=== PATIENT | male | born 1975 | race Caucasian/White ===

== ENCOUNTER 2020-06-28 08:31 | Emergency (ER) | payer SELFPAY ==
[~2020-06-28] VITALS: Ht 180.3 cm; Wt 86.2 kg
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
--- OUTSIDE RECORDS SUMMARY | 2020-06-28 08:53 | XMS REPORT | Continuity of Care Document ---
Author Author [facility] t Organization [facility] Address [address] [place] [address] Phone Unavailable Care Team Providers Care Varnish Maker Name Role Phone Vinay GOMES PCP Cruz MARIANO Attphys Unavailable Payers Payer Name Policy Type Policy Number Effective Date Expiration Date S merly [facility] [id number] 2011 00:00:00 [facility] Problems Condition Name Condition Details Condition Category Status Onset Date Resolution Date Last Treatment Date Treating Clinician Comments Source Cellulitis and abscess Problem Active 2015-09-09 00:00:00 [facility] Allergies, Adverse Reactions, Alerts Allergy Name Allergy Type Status Severity Reaction(s) Onset Date Inacti ve Date Treating Clinician Comments Source morphine DA Active [place] 2020-05-05 00:00:00 [facility] morphine DA Active [place] 2018-09-14 00:00:00 [facility] No Known Allergies DA Active [place] 2016-01-23 00:00:00 [facility] Morphine Allergy to substance Active ITCH RASH 2011-08-24 00:00:00 [facility] Social History Social Habit Start Date Stop Date Quantity Comments Source Sex Assigned At 1975 00:00:00 1975 00:00:00 Male [facility] Medications This patient has no known medications. Vital Signs Vital Name Observation Time Observation Value Comments Source Weight 2020-05-04 17:40:00 184 [lb_av] [facility] BMI (Body Mass Index) 2020-05-04 17:40:00 25.7 kg/m2 [facility] Procedures Procedure Date / Time Performed Performing Clinician Sour e Computed tomography of brain without radiopaque contrast 2020-04 00:00:00 [facility] Computed tomography of cervical spine without contrast 2020-04-15 1 00:00:00 [facility] X-ray of chest, single view 2020-05-04 00:00:[address] [facility] [address] maxillofacial area wo contrast 2020-05-04 00:00:00 [facility] Plan of Care Planned Activity Planned Date Details Comments Source Instructions Laceration [facility] Encounters Start Date/Time End Date/Time Encounter Type Admission Type Att[facility] Care Department Encounter ID Source 2020-05-04 17:01:00 2020-05-04 19:50:00 Departed Emergency Room 1 ALYSON MARIANO [facility] [id number] [facility] 2017-12-11 00:00:00 2017-12-20 00:00:00 [facility] [id number] [facility] 2017-06-19 00:00:00 2017-06-22 00:00:00 [facility] [id number] [facility] Results Test Description Test Time Test Comments Results Result Comments Source Blood leukocytes automated count (number/volume) 2020-05-04 18:40:00 Test Item White Blood Count (test code = 6690-2) 7.94 4.8-10.8 [facility] count (number/volume)2020-05-04 18:40:00* Test Item Value Reference Range Interpretation Comments Red Blood Count (test code = 789-8) 5.15 4.3-5.7 [facility] measurement (moles/volume)2020-05-04 18:40:00* Test Item Value Reference Range Interpretation Comments Hemoglobin (test code = 48469-9) 14.5 14.0-18.0 [facility] blood hematocrit (volume fraction)2020-05-04 18:40:00* Test Item Value Reference Range Interpretation Comments Hematocrit (test code = 4544-3) 45.3 38.2-49.6 [facility] erythrocyte mean corpuscular tvahqw6051-47-15 18:40:00* Test Item Value Reference Range Interpretation Comments Mean Corpuscular Volume (test code = 787-2) 88.0 81-99 [facility] erythrocyte mean corpuscular hemoglobin (mass per erythrocyte)2020-05-04 18:40:00* Test Item Value Reference Range Interpretation Comments Mean Corpuscular Hemoglobin (test code = 785-6) 28.2 28-32 [facility] HospitalAutcarolin[facility]ed erythrocyte mean corpuscular hemoglobin concentration measurement (mass/volume)2020-05-04 18:40:00* Test Item Value Reference Range Interpretation Comments Mean Corpuscular Hemoglobin Concent (test code = 786-4) 32.0 31-35 [facility] HospitalRDW TsmTf-Zmj1828-36-21 18:40:00* Test Item Value Reference Range Interpretation Comments Red Cell Distribution Width (test code = 28801-2) 12.5 11.7 -14.4 [facility] HospitalAutcarolin[facility]ed blood platelet count (count/volume)2020-05-04 18:40:00* Test Item Value Reference Range Interpretation Comments Platelet Count (test code = 777-3) 368 140-360 [facility] HospitalAutomated blood segmented neutrophil count as percentage of total hbaqedagot2424-75-53 18:40:00* Test Item Value Reference Range Interpretation Comments Neutrophils (%) (Auto) (test code = 81773-3) 68.2 38.7-80.0 [facility] HospitalAutomated blood lymphocyte count as percentage ot total jhktkrogqi1291-61-39 18:40:00* Test Item Value Reference Range Interpretation Comments Lymphocytes (%) (Auto) (test code = 736-9) 17.8 18.0-39.1 [facility] HospitalAutomated blood monocyte count as percentage of total idpyknwpzr1968-76-65 18:40:00* Test Item Value Reference Range Interpretation Comments Monocytes (%) (Auto) (test code = 5905-5) 8.2 4.4-11.3 [facility] HospitalAutomated blood eosinophil count as percentage of total jxtckmcpye1475-23-90 18:40:00* Test Item Value Reference Range Interpretation Comments Eosinophils (%) (Auto) (test code = 713-8) 4.9 0.0-6.0 [facility] HospitalAutomated blood basophil count as percentage of total clfdsydudo6198-78-06 18:40:00* Test Item Value Reference Range Interpretation Comments Basophils (%) (Auto) (test code = 706-2) 0.4 0.0-1.0 [facility] HospitalFluoroscopic procedure less than one hour mwifacll3261-71-75 18:40:00* Test Item Value Reference Range Interpretation Comments IM GRANULOCYTES % (test code = IM GRANULOCYTES %) 0.5 0.0- 1.0 [facility] HospitalAutomated blood neutrophil count 2020-05-04 18:40:00* Test Item Value Reference Range Interpretation Comments Neutrophils # (Auto) (test code = 751-8) 5.4 2.1-6.9 [facility]Blood lymphocytes count (number/volume) 2020-05-04 18:40:00* Test Item Value Reference Range Interpretation Comments Lymphocytes # (Auto) (test code = 08243-1) 1.4 1.0-3.2 [facility]Blood monocytes automated count (number/volume)2020-05-04 18:40:00* Test Item Value Reference Range Interpretation Comments Monocytes # (Auto) (test code = 742-7) 0.7 0.2-0.8 [facility] HospitalAutomated blood eosinophil count 2020-05-04 18:40:00* Test Item Value Reference Range Interpretation Comments Eosinophils # (Auto) (test code = 711-2) 0.4 0.0-0.4 [facility] HospitalAutomated blood basophil count (count/volume)2020-05-04 18:40:00* Test Item Value Reference Range Interpretation Comments Basophils # (Auto) (test code = 704-7) 0.0 0.0-0.1 [facility] HospitalFluoroscopic procedure less than one hour asfwordi2809-64-97 18:40:00* Test Item Value Reference Range Interpretation Comments Absolute Immature Granulocyte (auto ([place] t code = Absolute Immature Granulocyte (auto) 0.04 0-0.1 [facility] or plasma sodium measurement (moles/volume)2020-05-04 18:40:00* Test Item Value Reference Range Interpretation Comments Sodium Level (test code = 2951-2) 143 136-145 [facility]um or plasma potassium measurement (moles/volume)2020-05-04 18:40:00* Test Item Value Reference Range Interpretation Comments Potassium Level (test code = 2823-3) 4.0 3.5-5.1 [facility]um or plasma chloride measurement (moles/volume)2020-05-04 18:40:00* Test Item Value Reference Range Interpretation Comments Chloride Level (test code = 2075-0) 107 98-107 [facility] Dentonerum or plasma carbon dioxide, total measurement (moles/volume)2020-05-04 18:40:00* Test Item Value Reference Range Interpretation Comments Carbon Dioxide Level (test code = 2028-9) 31 22-29 [facility] Dentonerum or plasma anion zds6888-13-58 18:40:00* Test Item Value Reference Range Interpretation Comments Anion Gap (test code = 30596-1) 9.0 8-16 [facility]um or plasma urea nitrogen measurement (mass/volume)2020-05-04 18:40:00* Test Item Value Reference Range Interpretation Comments Blood Urea Nitrogen (test code = 3094-0) 12 7-26 [facility]um or plasma creatinine measurement (mass/volume)2020-05-04 18:40:00* Test Item Value Reference Range Interpretation Comments Creatinine (test code = 2160-0) 1.27 0.72-1.25 [facility]um or plasma urea nitrogen/creatinine mass arbnr0775-33-30 18:40:00* Test Item Value Reference Range Interpretation Comments BUN/Creatinine Ratio (test code = 3097-3) 9 6-25 [facility] HospitalEstimated glomerular filtration rate (GFR) puzanvukomeex6864-50-03 18:40:00* Test Item Value Reference Range Interpretation Comments Estimat Glomerular Filtration Rate (test code = 767994337) > 60 >60 Ranges were taken from the National Kidney Disease Education Program and the [facility] Kidney Foundation literature.Reference ranges:60 or greater: Lztbxn74-77 ( for 3 consecutive months): Chronic kidney disease 15 or less: Kidney failureHemphill County HospitalGlucose gywyscngxju9745-40-32 18:40:00* Test Item Value Reference Range Interpretation Comments Glucose Level (test code = HGN0747) 79 74-118 [facility]onerum or plasma calcium measurement (mass/volume)2020-05-04 18:40:00* Test Item Value Reference Range Interpretation Comments Calcium Level (test code = 48659-8) 9.0 8.4-10.2 [facility]onerum or plasma total bilirubin measurement (mass/volume)2020-05-04 18:40:00* Test Item Value Reference Range Interpretation Comments Total Bilirubin (test code = 1975-2) 0.3 0.2-1.2 [facility] HospitalFluoroscopic procedure less than one hour qkzvqrjw3321-61-75 18:40:00* Test Item Value Reference Range Interpretation Comments Aspartate Amino Transf (AST/SGOT) (test code = Aspartate Amino Transf (AST/SGOT)) 18 5-34 [facility] Dentonerum or plasma alanine aminotransferase measurement (enzymatic activity/volume)2020-05-04 18:40:00* Test Item Value Reference Range Interpretation Comments Alanine Aminotransferase (ALT/SGPT) (test code = 1742-6) 18 0-55 [facility]onerum or plasma protein measurement (mass/volume)2020-05-04 18:40:00* Test Item Value Reference Range Interpretation Comments Total Protein (test code = 2885-2) 7.4 6.5-8.1 [facility]um or plasma albumin measurement (mass/volume)2020-05-04 18:40:00* Test Item Value Reference Range Interpretation Comments Albumin (test code = 1751-7) 3.8 3.5-5.0 [facility] HospitalPlasma globulin measurement (mass/volume) 2020-05-04 18:40:00* Test Item Value Reference Range Interpretation Comments Globulin (test code = 57082-3) 3.6 2.3-3.5 [facility]um or plasma albumin/globulin mass hwbnk6954-28-95 18:40:00* Test Item Value Reference Range Interpretation Comments Albumin/Globulin Ratio (test code = 1759-0) 1.1 0.8-2.0 [facility]um or plasma alkaline phosphatase measurement (enzymatic activity/volume)2020-05-04 18:40:00* Test Item Value Reference Range Interpretation Comments Alkaline Phosphatase (test code = 6768-6) 91 40-150 [facility] HospitalCT C[facility]ICAL SPINE [id number] 18:40:00 [facility] [address] [address] Patient Name: GRIFFIN GIVENS MR #: [id number] : 1975 Age/Sex: 44/M Req #: [id number] Adm Physician: Ordered by: ALYSON MARIANO MD Report #: [id number] Location: ER Room/Bed: Procedure: [id number] CT/CT CERVICAL SP INE WO Exam Date: 05/04/20 Exam Time: 1750 REPORT STATUS: Signed History: Trauma C omparison studies: None Technique: Axial images were obtained through th e cervical region.. Coronal and sagittal images reconstructed from the axial d carlota. Dose modulation, iterative reconstruction, and/or weight based adjustment of the mA/kV was utilized to reduce the radiation dose to as low as reasonab ly achievable. Intravenous contrast: None Findings: Fractures: None. Soft tissues: No gross abnormalities. Atlantoaxial articulation: M ildly degenerated. Alignment: Reversal of the usual lordosis centered at C5. N o scoliosis. Cervicomedullary junction: No abnormalities. The foramen magnum i s patent. Vertebrae: No infection or neoplasm. Degenerative changes : * Mildly degenerated discs at C3-4 and C4-5, moderate at C5-6 and C6-7. * Spinal canal stenosis, mild from C3 to C5, moderate at C5-6, mild at C6-7 d ue to disc osteophyte complexes. * Foraminal stenosis, moderate left at C2-3 and C3-4 bilaterally at C5-6 and left at C6-7 due to facet and uncoarthrosis IMPRESSION: 1. No acute abnormalities. 2. Cannot adequately eval uate for ligament, spinal cord and or vascular abnormalities. 3. Degener ative spinal canal and foraminal stenosis as described Signed by: Dr. Chaparro Jackman M.D. on 05/04/2020 6:42 PM Dictated By: CHAPARRO Ford MD, MD 41 Transcribed By: RODOLFO on 05/04/201841 COPY TO: ALYSON MARIANO MD [facility] [id number] 18:38:[address] [address] Patient Name: GRIFFIN GIVENS MR #: [id number] : 1975 Age/Sex: 44/M Req #: [id number] Adm Physician: Ordered by: ALYSON MARIANO MD Report #: [id number] Location: ER Room/Bed: Procedure: [id number] CT/CT MAXIO FAC/P ARANAS WO Exam Date: 05/04/20 Exam Time: 1750 REPORT STATUS: Signed History:Trauma Comparison studies: None Technique: Axial images were obtained through t he maxillofacial region. Coronal and sagittal images reconstructed from the ax ial data. Dose modulation, iterative reconstruction, and/or weight based adjus tment of the mA/kV was utilized to reduce the radiation dose to as low as issac sonably achievable. Intravenous contrast: None Findings: Soft tissues: No abnormalities. Bones: No fractures or bone abnormalities. Orbits: Globes: Intact Extra or intraconal abnormalities: None. Paranasal sinuses: Peripheral mucosal thickening in the left maxillary sinus e xtends into the infundibulum. Focal mucosal thickening along the floor of th e right maxillary sinus. Otherwise clear. IMPRESSION: 1. No acute abnormalities. 2. Specifically, no fractures. Signed by: Dr. Chaparro Sheridan M.D. on 05/04/2020 6:40 PM Dictated By: CHAPARRO Mclean D 39 Transc ribed By: RODOLFO on 05/04/201839 COPY TO: ALYSON MARIANO MD CT BRAIN [id number] 18:37:00 [address] [address] Patient Name: GRIFFIN GIVENS MR #: [id number] : 1975 Age/Sex: 44/M Req #: [id number] Adm Physician: Ordered by: ALYSON MARIANO MD Report #: [id number] Location: ER Room/Bed: Procedure: [id number] CT/CT BRAIN LIANNE Kramer xam Date: 05/04/20 Exam Time: 1750 REPORT STATUS: Signed History: Fall Compariso n studies: None Technique: Axial images were obtained from the skull base to the vertex. Coronal and sagittal reconstructions obtained from the ax ial data. Dose modulation, iterative reconstruction, and/or weight based adjus tment of the mA/kV was utilized to reduce the radiation dose to as low as issac sonably achievable. Intravenous contrast: None Findings: Scalp /skull: No abnormalities. No fractures, blastic or lytic lesions. Extra- axial spaces: No masses. No fluid collections. Brain sulci: Appropriate for age. Ventricles: Normal in size and configuration. No hydrocephalus. Parenchyma: No abnormal densities. No masses, hemorrhage, acute or chroni c cortical vascular insults. Sellar/suprasellar region: No abnormalities Craniocervical junction: Patent foramen magnum. No Chiari one malformation. Incidental findings: None. IMPRESSION: 1. No intracranial abnorma lities. 2. Refer to the maxillofacial and cervical spine CT is obtained at th e same time Signed by: Dr. Chaparro Jackman M.D. on 05/04/2020 6:38 PM Dictated By: CHAPARRO JACKMAN MD, MD 1838 Transcribed By: RODOLFO on 05/04/20 18 38 COPY TO: ALYSON MARIANO MD Urine color qqdbquhepvqyl2433-20-76 18:15:00* Test Item Value Reference Range Interpretation Comments Urine Color (test code = 5778-6) YELLOW YELLOW [facility] HospitalUrine buapand7316-95-13 18:15:00* Test Item Value Reference Range Interpretation Comments Urine Clarity (test code = 50702-5) CLEAR CLEAR [facility] gravity of Urine by Test strip 2020-05-04 18:15:00* Test Item Value Reference Range Interpretation Comments Urine Specific [place] (test code = 5811-5) 1.025 1.010-1.02 5 [facility] pH measurement by automated test bvwlc4678-67-88 18:15:00* Test Item Value Reference Range Interpretation Comments Urine pH (test code = 28998-3) 7 5-7 [facility] leukocyte esterase detection by kquecntx8831-14-48 18:15:00* Test Item Value Reference Range Interpretation Comments Urine Leukocyte Esterase (test code = 5799-2) NEGATIVE NEGATIVE [facility] nitrite zshvzmadz1241-87-70 18:15:00* Test Item Value Reference Range Interpretation Comments Urine Nitrite (test code = 71970-1) NEGATIVE NEGATIVE [facility] protein measurement by test strip (mass/volume)2020-05-04 18:15:00* Test Item Value Reference Range Interpretation Comments Urine Protein (test code = 5804-0) NEGATIVE NEGATIVE [facility] glucose vrvpqlgyl0806-31-04 18:15:00* Test Item Value Reference Range Interpretation Comments Urine Glucose (UA) (test code = 2349-9) NEGATIVE NEGATIVE [facility] ketones detection by automated test sbffd3388-57-52 18:15:00* Test Item Value Reference Range Interpretation Comments Urine Ketones (test code = 39618-3) NEGATIVE NEGATIVE [facility] opiates screening yonp9460-35-69 18:15:00* Test Item Value Reference Range Interpretation Comments Urine Opiates Screen (test code = 53994-9) NEGATIVE NEGATIVE ALL TESTS PERFORMED MANUALLY ON 2threads TOX/SEE TESTHemphill County HospitalBarbiturates screen, qoizq2306-50-20 18:15:00* Test Item Value Reference Range Interpretation Comments Urine Barbiturates Screen (test code = 697019280) NEGATIVE NEGA TIVE [facility] HospitalUrine phencyclidine detection by screening igroci9557-18-99 18:15:00* Test Item Value Reference Range Interpretation Comments Urine Phencyclidine Screen (test code = 24849-6) NEGATIVE NEGAT AUBREE [facility] HospitalUrine amphetamines detection by screen method > 1000 ng/cV3306-68-48 18:15:00* Test Item Value Reference Range Interpretation Comments Urine Amphetamines Screen (test code = 57158-3) POSITIVE NEGATI VE This test provides only a screen. Positive results should be repeated by a confi rmatory test.[facility] HospitalFluoroscopic procedure less than one hour wdrjrnau3027-29-97 18:15:00* Test Item Value Reference Range Interpretation Comments Urine Methamphetamines Screen (test code = Urine Metha mphetamines Screen) POSITIVE NEGATIVE This test provides only a screen. Positive results should be repeated by a confi rmatory test.[facility] HospitalUrine benzodiazepines detection by screening qlmayi1864-92-35 18:15:00* Test Item Value Reference Range Interpretation Comments Urine Benzodiazepines Screen (test code = 42779-8) NEGATIVE NEG ATIVE [facility] HospitalU[facility] cocaine measurement (mass/volume) 2020-05-04 18:15:00* Test Item Value Reference Range Interpretation Comments Urine Cocaine Screen (test code = 3398-5) NEGATIVE NEGATIVE [facility]Urine cannabinoids detection by screening zexevo6986-48-34 18:15:00* Test Item Value Reference Range Interpretation Comments Urine Cannabinoids Screen (test code = 98111-2) NEGATIVE NEGATI VE THESE RESULTS ARE FOR MEDICAL TREATMENT ONLYTHIS REPORT CONTAINS UNCONFIR MED SCREENING RESULTS*POSITIVE RESULTS WILL BE CONFIRMED BY REFERENCE LAB UPON R EQUEST CUT-OFFDRUG CLASS CONCENTRATION ng/mLAmphetamines 1000Methamphetamines 1000Cocaine 300Opiate 300Phencyc lidine 25Cannabinoid 50Barbiturates 300Benzodiazepine 300Methadone 300[facility] meth[facility] umaivb9205-63-32 18:15:00* Test Item Value Reference Range Interpretation Comments Urine Methadone Screen (test code = 84593-7) NEGATIVE NEGATIVE This test provides only a screen. Positive results should be repeated by a confi rmatory test.THESE RESULTS ARE FOR MEDICAL TREATMENT ONLYTHIS REPORT CONT AINS UNCONFIRMED SCREENING RESULTS*POSITIVE RESULTS WILL BE CONFIRMED BY REFEREN CE LAB UPON REQUEST CUT-OFFDRUG CLASS CON CENTRATION ng/mLAmphetamines 1000Methamp hetamines 1000Cocaine Metabolite 300Opiate 300Phencyclidine 25Cannabinoid 50Barbiturates 300Benzodiazepine 300Methadone 30 0[facility] Marshall[facility]rine urobilinogen measurement by test strip (mass/volume)2020-05-04 18:15:00* Test Item Value Reference Range Interpretation Comments Urine Urobilinogen (test code = 26406-2) 0.2 0.2-1 [facility] total bilirubin measurement (mass/volume)2020-05-04 18:15:00* Test Item Value Reference Range Interpretation Comments Urine Bilirubin (test code = 1978-6) NEGATIVE NEGATIVE [facility] HospitalU[facility] erythrocytes iutnfwadw7079-48-19 18:15:00* Test Item Value Reference Range Interpretation Comments Urine Blood (test code = 87625-3) NEGATIVE NEGATIVE [facility] HospitalAutomated urine sediment leukocyte count by microscopy (number/high power field)2020-05-04 18:15:00* Test Item Value Reference Range Interpretation Comments Urine WBC (test code = 5821-4) 0-5 0-5 [facility] HospitalErythrocytes detection in urine sediment by light zxwxsvzkcd1511-48-07 18:15:00* Test Item Value Reference Range Interpretation Comments Urine RBC (test code = 62204-4) 0-5 0-5 [facility] HospitalBacteria detection in urine sediment by light apcclhfufw3397-23-73 18:15:00* Test Item Value Reference Range Interpretation Comments Urine Bacteria (test code = 00426-9) FEW NONE [facility] HospitalEpithelial cells detection in urine sediment by light lstvdvwyrx0965-50-95 18:15:00* Test Item Value Reference Range Interpretation Comments Urine Epithelial Cells (test code = 78806-7) FEW NONE [facility] HospitalCHEST SINGLE (NOT PORTABLE)2020-05-04 18:05:00 [facility] [address] [place] [address] Patient Name: GRIFFIN GIVENS MR #: [id number] : 1975 Age/Sex: 44/M Req #: [id number] Adm Physician: Ordered by: ALYSON MARIANO MD Report #: [id number] Location: ER Room/Bed: Procedure: [id number] DX/CHEST SINGLE ( NOT PORTABLE) Exam Date: 05/04/20 Exam Time: 1754 REPORT STATUS: Signed EXAMINATION: CHEST SINGLE (NOT PORTABLE) COMPARISON: None INDICATION: Fall, h ead laceration FALL [id number] DISCUSSION: Frontal view of the chest obtained at 1752 hours. HEART AND MEDIASTINUM: The cardiomedias tinal silhouette is unremarkable. LINES: None. LUNGS/PLEURA: The l ungs are well inflated and clear. No pneumonia or pulmonary edema. No pleural effusion or pneumothorax. BONES AND SOFT TISSUES: The osseous structures a re intact. There is a screw in the left humeral head, partially imaged. No ass ociated fracture. The soft tissues are normal. IMPRESSION: No acute traumatic pathology by x-ray. Signed by: Dr. Muriel Kaur MD on 05/04 6:15 PM Dictated By: MURIEL KAUR MD 14 Transcribed By: RODOLFO on 05/04/20 181 5 COPY TO: ALYSON MARIANO MD
== END 2020-06-28 08:50 | disposition home or self-care (01) ==
LOC: ER 08:50
DX: J02.9 Acute pharyngitis, unspecified (principal); F17.210 Nicotine dependence, cigarettes, uncomplicated
CPT/HCPCS: 99282

== ENCOUNTER → 2020-06-29 | Emergency (ER) | payer OTHER ==
[~2020-06-29] VITALS: Ht 180.3 cm; Wt 86.2 kg
--- NOTE | 2020-06-29 14:42 | NUR ---
pt apparently changed his mind and left when he said he was to go get his license and never came back.
--- OUTSIDE RECORDS SUMMARY | 2020-06-29 15:18 | XMS REPORT | Continuity of Care Document ---
Author Author [facility] t Organization [facility] Address [address] [place] [address] Phone Unavailable Care Team Providers Care Weather Observer Name Role Phone Vinay GOMES PCP Cruz MARIANO Attphys Unavailable Payers Payer Name Policy Type Policy Number Effective Date Expiration Date S merly [facility] [id number] 2011 00:00:00 [facility] Problems Condition Name Condition Details Condition Category Status Onset Date Resolution Date Last Treatment Date Treating Clinician Comments Source Cellulitis and abscess Problem Active 2015-09-09 00:00:00 [facility] Pharyngitis Problem Active [facility] Allergies, Adverse Reactions, Alerts Allergy Name Allergy Type Status Severity Reaction(s) Onset Date Inacti ve Date Treating Clinician Comments Source Morphine Allergy to substance Active [facility] 2020-06-28 00:00:00 [facility] morphine DA Active [place] 2020-05-05 00:00:00 [facility] morphine DA Active [place] 2018-09-14 00:00:00 [facility] No Known Allergies DA Active U 2016-01-23 00:00:00 [facility] Social History Social Habit Start Date Stop Date Quantity Comments Source Sex Assigned At 1975 00:00:00 1975 00:00:00 Male [facility] Medications This patient has no known medications. Vital Signs Vital Name Observation Time Observation Value Comments Source Weight 2020-06-28 08:35:00 190 [lb_av] [facility] BMI (Body Mass Index) 2020-06-28 08:35:00 26.5 kg/m2 [facility] Weight 2020-05-04 17:40:00 184 [lb_av] [facility] BMI (Body Mass Index) 2020-05-04 17:40:00 25.7 kg/m2 [facility] Procedures Procedure Date / Time Performed Performing Clinician [facility] Computed tomography of brain without radiopaque contrast 2020-04 00:00:00 [facility] Computed tomography of cervical spine without contrast 2020-04-15 00:00:00 [facility] X-ray of chest, single view 2020-05-04 00:00:[address] [facility] [address] maxillofacial area wo contrast 2020-05-04 00:00:00 [facility] Plan of Care Planned Activity Planned Date Details Comments Source Instructions Strep Throat- Adult [facility] Encounters Start Date/Time End Date/Time Encounter Type Admission Type Attendi [facility] Care Department Encounter ID Source 2020-06-28 08:50:00 2020-06-28 08:50:00 Departed Emergency Room [facility] [id number] [facility] dical [place] 2020-05-04 17:01:00 2020-05-04 19:50:00 Departed Emergency Room 1 ALYSON MARIANO [facility] [id number] [facility] 2017-12-11 00:00:00 2017-12-20 00:00:00 [facility] [id number] [facility] 2017-06-19 00:00:00 2017-06-22 00:00:00 Outpatient [facility] [id number] [facility] Results Test Description Test Time Test Comments Results Result Comments Source BASIC METABOLIC PANEL 2020-06-29 15:10:00 Test Item SODIUM (test code = NA) 139 mmol/L 136-145 N POTASSIUM (test code = K) 4.0 mmol/L 3.5-5.1 N CHLORIDE (test code = CL) 107.0 mmol/L 98-107 N CARBON DIOXIDE (test code = CO2) 27.0 mmol/L 21-32 N ANION GAP (test code = GAP) 9.0 10-20 L GLUCOSE (test code = GLU) 80 mg/dL 74-106 N BLOOD UREA NITROGEN (test code = BUN) 15 mg/dL 7-18 N GLOMERULAR FILTRATION RATE (test code = GFR) > 60 mL/min >=60 Estimated GFR by using Modified MDRD formula.Chronic kidney disease is defined as either kidney damageor GFR <60 mL/min/1.73 m2 for >3 months. CREATININE (test code = CREAT) 0.70 mg/dL 0.7-1.3 N BUN/CREATININE RATIO (test code = BUN/CREA) 20.3 10-20 H CALCIUM (test code = CA) 9.2 mg/dL 8.5-10.1 N BASIC METABOLIC [id number] 15:05:00* Test Item Value Reference Range Interpretation Comments SODIUM (test code = NA) 139 mmol/L 136-145 N POTASSIUM (test code = K) 4.0 mmol/L 3.5-5.1 N CHLORIDE (test code = CL) 107.0 mmol/L 98-107 N CARBON DIOXIDE (test code = CO2) mmol/L 21-32 ANION GAP (test code = GAP) 10-20 GLUCOSE (test code = GLU) mg/dL 74-106 BLOOD UREA NITROGEN (test code = BUN) mg/dL 7-18 GLOMERULAR FILTRATION RATE (test code = GFR) mL/min >=60 CREATININE (test code = CREAT) mg/dL 0.7-1.3 BUN/CREATININE RATIO (test code = BUN/CREA) 10-20 CALCIUM (test code = CA) mg/dL 8.5-10.1 CBC W/AUTO [id number] 14:59:00* Test Item Value Reference Range Interpretation Comments WHITE BLOOD CELL (test code = WBC) K/mm3 4.5-12.5 RED BLOOD CELL (test code = RBC) mill/mm3 4.0-5.8 HEMOGLOBIN (test code = HGB) 14.1 gram/dL 13.0-17.5 N HEMATOCRIT (test code = HCT) 42.4 % 42.0-52.0 N MEAN CELL VOLUME (test code = MCV) fL 80-98 MEAN CELL HGB (test code = MCH) picogram 27.0-33.0 MEAN CELL HGB CONCETRATION (test code = MCHC) gram/dL 33.0-36. 0 RED CELL DISTRIBUTION WIDTH (test code = RDW) % 11.6-16. 2 RED CELL DISTRIBUTION WIDTH SD (test code = RDW-SD) fL 37 .0-51.0 PLATELET COUNT (test code = PLT) 315 K/mm3 150-450 N MEAN PLATELET VOLUME (test code = MPV) fL 6.7-11.0 NEUTROPHIL % (test code = NT%) % 39.0-69.0 IMMATURE GRANULOCYTE % (test code = IG%) % 0.0-5.0 LYMPHOCYTE % (test code = LY%) % 25.0-55.0 MONOCYTE % (test code = MO%) % 0.0-10.0 EOSINOPHIL % (test code = EO%) % 0.0-5.0 BASOPHIL % (test code = BA%) % 0.0-1.0 NEUTROPHIL # (test code = NT#) K/mm3 1.8-7.7 LYMPHOCYTE # (test code = LY#) K/mm3 1.0-5.0 MONOCYTE # (test code = MO#) K/mm3 0-0.8 EOSINOPHIL # (test code = EO#) K/mm3 0.0-0.5 BASOPHIL # (test code = BA#) K/mm3 0.0-0.2 CBC W/AUTO [id number] 14:59:00* Test Item Value Reference Range Interpretation Comments WHITE BLOOD CELL (test code = WBC) 11.7 K/mm3 4.5-12.5 N RED BLOOD CELL (test code = RBC) 4.81 mill/mm3 4.0-5.8 N HEMOGLOBIN (test code = HGB) 14.1 gram/dL 13.0-17.5 N HEMATOCRIT (test code = HCT) 42.4 % 42.0-52.0 N MEAN CELL VOLUME (test code = MCV) 88.1 fL 80-98 N MEAN CELL HGB (test code = MCH) 29.3 picogram 27.0-33.0 N MEAN CELL HGB CONCETRATION (test code = MCHC) 33.3 gram/dL 33.0-36. 0 N RED CELL DISTRIBUTION WIDTH (test code = RDW) 12.9 % 11.6-16. 2 N RED CELL DISTRIBUTION WIDTH SD (test code = RDW-SD) 41.3 fL 37 .0-51.0 N PLATELET COUNT (test code = PLT) 315 K/mm3 150-450 N MEAN PLATELET VOLUME (test code = MPV) 8.6 fL 6.7-11.0 N NEUTROPHIL % (test code = NT%) 69.3 % 39.0-69.0 H IMMATURE GRANULOCYTE % (test code = IG%) 0.4 % 0.0-5.0 N LYMPHOCYTE % (test code = LY%) 17.1 % 25.0-55.0 L MONOCYTE % (test code = MO%) 10.9 % 0.0-10.0 H EOSINOPHIL % (test code = EO%) 2.0 % 0.0-5.0 N BASOPHIL % (test code = BA%) 0.3 % 0.0-1.0 N NUCLEATED RBC % (test code = NRBC%) 0.0 % 0-0 N NEUTROPHIL # (test code = NT#) 8.11 K/mm3 1.8-7.7 H IMMATURE GRANULOCYTE # (test code = IG#) 0.05 x10 3/uL 0-0.03 H LYMPHOCYTE # (test code = LY#) 2.00 K/mm3 1.0-5.0 N MONOCYTE # (test code = MO#) 1.28 K/mm3 0-0.8 H EOSINOPHIL # (test code = EO#) 0.24 K/mm3 0.0-0.5 N BASOPHIL # (test code = BA#) 0.04 K/mm3 0.0-0.2 N NUCLEATED RBC # (test code = NRBC#) 0.00 K/mm3 0.0-0.1 N Blood leukocytes automated count (number/volume)2020-05-04 18:40:00* Test Item Value Reference Range Interpretation Comments White Blood Count (test code = 6690-2) 7.94 4.8-10.8 [facility] (number/volume)2020-05-04 18:40:00* Test Item Value Reference Range Interpretation Comments Red Blood Count (test code = 789-8) 5.15 4.3-5.7 [facility] hemoglobin measurement (moles/volume)2020-05-04 18:40:00* Test Item Value Reference Range Interpretation Comments Hemoglobin (test code = 64838-3) 14.5 14.0-18.0 [facility] blood hematocrit (volume fraction)2020-05-04 18:40:00* Test Item Value Reference Range Interpretation Comments Hematocrit (test code = 4544-3) 45.3 38.2-49.6 [facility]Autom[facility] erythrocyte mean corpuscular [id number] 18:40:00* Test Item Value Reference Range Interpretation Comments Mean Corpuscular Volume (test code = 787-2) 88.0 81-99 [facility] mean corpuscular hemoglobin (mass per erythrocyte)2020-05-04 18:40:00* Test Item Value Reference Range Interpretation Comments Mean Corpuscular Hemoglobin (test code = 785-6) 28.2 28-32 [facility]rocyte mean corpuscular hemoglobin concentration measurement (mass/volume)2020-05-04 18:40:00* Test Item Value Reference Range Interpretation Comments Mean Corpuscular Hemoglobin Concent (test code = 786-4) 32.0 31-35 [facility] HendersonRDW [id number]-[id number] 18:40:00* Test Item Value Reference Range Interpretation Comments Red Cell Distribution Width (test code = 74602-5) 12.5 11.7 -14.4 [facility] blood platelet count (count/volume)2020-05-04 18:40:00* Test Item Value Reference Range Interpretation Comments Platelet Count (test code = 777-3) 368 140-360 [facility] neutrophil count as percentage of total gibherfqyi3584-00-27 18:40:00* Test Item Value Reference Range Interpretation Comments Neutrophils (%) (Auto) (test code = 67015-6) 68.2 38.7-80.0 [facility] lymphocyte count as percentage ot total qoyhkuvjgc8426-90-58 18:40:00* Test Item Value Reference Range Interpretation Comments Lymphocytes (%) (Auto) (test code = 736-9) 17.8 18.0-39.1 [facility]Autom[facility] blood monocyte count as percentage of total flgvefqfeu1138-61-31 18:40:00* Test Item Value Reference Range Interpretation Comments Monocytes (%) (Auto) (test code = 5905-5) 8.2 4.4-11.3 [facility]Autom[facility] blood eosinophil count as percentage of total ycomtasvil5772-98-78 18:40:00* Test Item Value Reference Range Interpretation Comments Eosinophils (%) (Auto) (test code = 713-8) 4.9 0.0-6.0 [facility]Autom[facility] blood basophil count as percentage of total iwwecycfer7495-75-02 18:40:00* Test Item Value Reference Range Interpretation Comments Basophils (%) (Auto) (test code = 706-2) 0.4 0.0-1.0 [facility] HendersonFluor[facility] procedure less than one hour xihzeixw3044-29-62 18:40:00* Test Item Value Reference Range Interpretation Comments IM GRANULOCYTES % (test code = IM GRANULOCYTES %) 0.5 0.0- 1.0 [facility] HendersonAutom[facility] blood neutrophil count 2020-05-04 18:40:00* Test Item Value Reference Range Interpretation Comments Neutrophils # (Auto) (test code = 751-8) 5.4 2.1-6.9 [facility] lymphocytes count (number/volume) 2020-05-04 18:40:00* Test Item Value Reference Range Interpretation Comments Lymphocytes # (Auto) (test code = 77612-1) 1.4 1.0-3.2 [facility] count (number/volume)2020-05-04 18:40:00* Test Item Value Reference Range Interpretation Comments Monocytes # (Auto) (test code = 742-7) 0.7 0.2-0.8 [facility]Autom[facility] blood eosinophil count 2020-05-04 18:40:00* Test Item Value Reference Range Interpretation Comments Eosinophils # (Auto) (test code = 711-2) 0.4 0.0-0.4 [facility] HendersonAutomated blood basophil count (count/volume)2020-05-04 18:40:00* Test Item Value Reference Range Interpretation Comments Basophils # (Auto) (test code = 704-7) 0.0 0.0-0.1 [facility] HendersonFluor[facility] procedure less than one hour bedvqgrv9153-81-46 18:40:00* Test Item Value Reference Range Interpretation Comments Absolute Immature Granulocyte (auto ([place] t code = Absolute Immature Granulocyte (auto) 0.04 0-0.1 [facility] (moles/volume)2020-05-04 18:40:00* Test Item Value Reference Range Interpretation Comments Sodium Level (test code = 2951-2) 143 136-145 [facility] potassium measurement (moles/volume)2020-05-04 18:40:00* Test Item Value Reference Range Interpretation Comments Potassium Level (test code = 2823-3) 4.0 3.5-5.1 [facility] chloride measurement (moles/volume)2020-05-04 18:40:00* Test Item Value Reference Range Interpretation Comments Chloride Level (test code = 2075-0) 107 98-107 [facility] carbon dioxide, total measurement (moles/volume)2020-05-04 18:40:00* Test Item Value Reference Range Interpretation Comments Carbon Dioxide Level (test code = 2028-9) 31 22-29 [facility] anion sni2717-65-56 18:40:00* Test Item Value Reference Range Interpretation Comments Anion Gap (test code = 99325-4) 9.0 8-16 [facility] urea nitrogen measurement (mass/volume)2020-05-04 18:40:00* Test Item Value Reference Range Interpretation Comments Blood Urea Nitrogen (test code = 3094-0) 12 7-26 [facility] creatinine measurement (mass/volume)2020-05-04 18:40:00* Test Item Value Reference Range Interpretation Comments Creatinine (test code = 2160-0) 1.27 0.72-1.25 [facility] urea nitrogen/creatinine mass ucrif0940-32-90 18:40:00* Test Item Value Reference Range Interpretation Comments BUN/Creatinine Ratio (test code = 3097-3) 9 6-25 [facility]Estimated glomerular filtration rate (GFR) qlbpzplskvxqr9779-89-84 18:40:00* Test Item Value Reference Range Interpretation Comments Estimat Glomerular Filtration Rate (test code = 090442372) > 60 >60 Ranges were taken from the National Kidney Disease Education Program and the [facility] literature.Reference ranges:60 or greater: Yqwkci39-56 ( for 3 consecutive months): Chronic kidney disease 15 or less: Kidney failureUT Health HendersonGlucose iltrgcrlesx6613-93-38 18:40:00* Test Item Value Reference Range Interpretation Comments Glucose Level (test code = DXT6416) 79 74-118 [facility] calcium measurement (mass/volume)2020-05-04 18:40:00* Test Item Value Reference Range Interpretation Comments Calcium Level (test code = 56559-9) 9.0 8.4-10.2 [facility] plasma total bilirubin measurement (mass/volume)2020-05-04 18:40:00* Test Item Value Reference Range Interpretation Comments Total Bilirubin (test code = 1975-2) 0.3 0.2-1.2 [facility] HendersonFluor[facility] procedure less than one hour drvbzqez5724-94-82 18:40:00* Test Item Value Reference Range Interpretation Comments Aspartate Amino Transf (AST/SGOT) (test code = Aspartate Amino Transf (AST/SGOT)) 18 5-34 [facility] plasma alanine aminotransferase measurement (enzymatic activity/volume)2020-05-04 18:40:00* Test Item Value Reference Range Interpretation Comments Alanine Aminotransferase (ALT/SGPT) (test code = 1742-6) 18 0-55 [facility] plasma protein measurement (mass/volume)2020-05-04 18:40:00* Test Item Value Reference Range Interpretation Comments Total Protein (test code = 2885-2) 7.4 6.5-8.1 [facility] plasma albumin measurement (mass/volume)2020-05-04 18:40:00* Test Item Value Reference Range Interpretation Comments Albumin (test code = 1751-7) 3.8 3.5-5.0 [facility]Plasma globulin measurement (mass/volume) 2020-05-04 18:40:00* Test Item Value Reference Range Interpretation Comments Globulin (test code = 94786-9) 3.6 2.3-3.5 [facility] albumin/globulin mass oiwgd7568-18-27 18:40:00* Test Item Value Reference Range Interpretation Comments Albumin/Globulin Ratio (test code = 1759-0) 1.1 0.8-2.0 [facility] plasma alkaline phosphatase measurement (enzymatic activity/volume)2020-05-04 18:40:00* Test Item Value Reference Range Interpretation Comments Alkaline Phosphatase (test code = 6768-6) 91 40-150 [facility] leukocytes automated count (number/volume)2020-05-04 18:40:00* Test Item Value Reference Range Interpretation Comments White Blood Count (test code = 6690-2) 7.94 4.8-10.8 [facility]Blood erythrocytes automated count (number/volume)2020-05-04 18:40:00* Test Item Value Reference Range Interpretation Comments Red Blood Count (test code = 789-8) 5.15 4.3-5.7 [facility]Blood hemoglobin measurement (moles/volume)2020-05-04 18:40:00* Test Item Value Reference Range Interpretation Comments Hemoglobin (test code = 52689-6) 14.5 14.0-18.0 [facility] HendersonAutomated blood hematocrit (volume fraction)2020-05-04 18:40:00* Test Item Value Reference Range Interpretation Comments Hematocrit (test code = 4544-3) 45.3 38.2-49.6 [facility] HendersonAutomated erythrocyte mean corpuscular lfpqiv1058-56-99 18:40:00* Test Item Value Reference Range Interpretation Comments Mean Corpuscular Volume (test code = 787-2) 88.0 81-99 [facility] HendersonAutomated erythrocyte mean corpuscular hemoglobin (mass per erythrocyte)2020-05-04 18:40:00* Test Item Value Reference Range Interpretation Comments Mean Corpuscular Hemoglobin (test code = 785-6) 28.2 28-32 [facility] HendersonAutomated erythrocyte mean corpuscular hemoglobin concentration measurement (mass/volume)2020-05-04 18:40:00* Test Item Value Reference Range Interpretation Comments Mean Corpuscular Hemoglobin Concent (test code = 786-4) 32.0 31-35 [facility] HendersonRDW UqnYd-Maz6342-05-21 18:40:00* Test Item Value Reference Range Interpretation Comments Red Cell Distribution Width (test code = 57883-2) 12.5 11.7 -14.4 [facility] HendersonAutomated blood platelet count (count/volume)2020-05-04 18:40:00* Test Item Value Reference Range Interpretation Comments Platelet Count (test code = 777-3) 368 140-360 [facility] HendersonAutomated blood segmented neutrophil count as percentage of total ewucopujii5628-24-97 18:40:00* Test Item Value Reference Range Interpretation Comments Neutrophils (%) (Auto) (test code = 22573-3) 68.2 38.7-80.0 [facility] HendersonAutomated blood lymphocyte count as percentage ot total nmetenyekx0364-37-85 18:40:00* Test Item Value Reference Range Interpretation Comments Lymphocytes (%) (Auto) (test code = 736-9) 17.8 18.0-39.1 [facility] HendersonAutomated blood monocyte count as percentage of total ekktvbvijx9397-97-25 18:40:00* Test Item Value Reference Range Interpretation Comments Monocytes (%) (Auto) (test code = 5905-5) 8.2 4.4-11.3 [facility] HendersonAutomated blood eosinophil count as percentage of total jbvtvjvwkm4920-48-25 18:40:00* Test Item Value Reference Range Interpretation Comments Eosinophils (%) (Auto) (test code = 713-8) 4.9 0.0-6.0 [facility] HendersonAutomated blood basophil count as percentage of total bgpktvjefe5662-46-77 18:40:00* Test Item Value Reference Range Interpretation Comments Basophils (%) (Auto) (test code = 706-2) 0.4 0.0-1.0 [facility] HendersonFluoroscopic procedure less than one hour vaigrazn1214-10-13 18:40:00* Test Item Value Reference Range Interpretation Comments IM GRANULOCYTES % (test code = IM GRANULOCYTES %) 0.5 0.0- 1.0 [facility]Autom[facility] blood neutrophil count 2020-05-04 18:40:00* Test Item Value Reference Range Interpretation Comments Neutrophils # (Auto) (test code = 751-8) 5.4 2.1-6.9 [facility] lymphocytes count (number/volume) 2020-05-04 18:40:00* Test Item Value Reference Range Interpretation Comments Lymphocytes # (Auto) (test code = 23268-6) 1.4 1.0-3.2 [facility]Blood monocytes automated count (number/volume)2020-05-04 18:40:00* Test Item Value Reference Range Interpretation Comments Monocytes # (Auto) (test code = 742-7) 0.7 0.2-0.8 [facility]Autom[facility] blood eosinophil count 2020-05-04 18:40:00* Test Item Value Reference Range Interpretation Comments Eosinophils # (Auto) (test code = 711-2) 0.4 0.0-0.4 [facility] HendersonAutomated blood basophil count (count/volume)2020-05-04 18:40:00* Test Item Value Reference Range Interpretation Comments Basophils # (Auto) (test code = 704-7) 0.0 0.0-0.1 [facility] HendersonFluor[facility] procedure less than one hour qmcukljz6544-60-88 18:40:00* Test Item Value Reference Range Interpretation Comments Absolute Immature Granulocyte (auto ([place] t code = Absolute Immature Granulocyte (auto) 0.04 0-0.1 [facility] HendersonProthrombin time (PT) in platelet poor plasma by coagulation jleif2191-49-07 18:40:00* Test Item Value Reference Range Interpretation Comments Prothrombin Time (test code = 5902-2) 12.1 11.9-14.5 [facility] HendersonINR in Platelet poor plasma by Coagulation fpahn3043-79-21 18:40:00* Test Item Value Reference Range Interpretation Comments Prothromb Time International Ratio (test code = 6301-6) 0.85 Oral Anticoagulant Therapy INR Values:1. Low Intensity Therapy 1.5 - 2.02 . Moderate Intensity Therapy 2.0 - 3.03. High Intensity Therapy(1) 2.5 - 3. 54. High Intensity Therapy(2) 3.0 - 4.05. Panic Value INR > 5.0 [facility] HendersonActivated partial thromboplastin time (aPTT) in platelet poor plasma by coagulation iypbw8530-52-15 18:40:00* Test Item Value Reference Range Interpretation Comments Activated Partial Thromboplast Time (test code = 79956-3) 30.2 23.8-35.5 [facility] sodium measurement (moles/volume)2020-05-04 18:40:00* Test Item Value Reference Range Interpretation Comments Sodium Level (test code = 2951-2) 143 136-145 [facility] potassium measurement (moles/volume)2020-05-04 18:40:00* Test Item Value Reference Range Interpretation Comments Potassium Level (test code = 2823-3) 4.0 3.5-5.1 [facility] chloride measurement (moles/volume)2020-05-04 18:40:00* Test Item Value Reference Range Interpretation Comments Chloride Level (test code = 2075-0) 107 98-107 [facility] plasma carbon dioxide, total measurement (moles/volume)2020-05-04 18:40:00* Test Item Value Reference Range Interpretation Comments Carbon Dioxide Level (test code = 2028-9) 31 22-29 [facility]er[facility] plasma anion inf0343-53-44 18:40:00* Test Item Value Reference Range Interpretation Comments Anion Gap (test code = 26831-6) 9.0 8-16 [facility] urea nitrogen measurement (mass/volume)2020-05-04 18:40:00* Test Item Value Reference Range Interpretation Comments Blood Urea Nitrogen (test code = 3094-0) 12 7-26 [facility] creatinine measurement (mass/volume)2020-05-04 18:40:00* Test Item Value Reference Range Interpretation Comments Creatinine (test code = 2160-0) 1.27 0.72-1.25 [facility] urea nitrogen/creatinine mass mtmqc6989-69-63 18:40:00* Test Item Value Reference Range Interpretation Comments BUN/Creatinine Ratio (test code = 3097-3) 9 6-25 [facility]Estimated glomerular filtration rate (GFR) qxaixzyvhiefk3685-16-43 18:40:00* Test Item Value Reference Range Interpretation Comments Estimat Glomerular Filtration Rate (test code = 596448992) > 60 >60 Ranges were taken from the National Kidney Disease Education Program and the [facility] literature.Reference ranges:60 or greater: Dkfaje92-24 ( for 3 consecutive months): Chronic kidney disease 15 or less: Kidney failureUT Health HendersonGlucose rpopbnmugul9435-97-07 18:40:00* Test Item Value Reference Range Interpretation Comments Glucose Level (test code = RLP5329) 79 74-118 [facility] calcium measurement (mass/volume)2020-05-04 18:40:00* Test Item Value Reference Range Interpretation Comments Calcium Level (test code = 15142-8) 9.0 8.4-10.2 [facility] plasma total bilirubin measurement (mass/volume)2020-05-04 18:40:00* Test Item Value Reference Range Interpretation Comments Total Bilirubin (test code = 1975-2) 0.3 0.2-1.2 [facility] HendersonFluor[facility] procedure less than one hour hthhzqpe8067-58-24 18:40:00* Test Item Value Reference Range Interpretation Comments Aspartate Amino Transf (AST/SGOT) (test code = Aspartate Amino Transf (AST/SGOT)) 18 5-34 [facility]er[facility] plasma alanine aminotransferase measurement (enzymatic activity/volume)2020-05-04 18:40:00* Test Item Value Reference Range Interpretation Comments Alanine Aminotransferase (ALT/SGPT) (test code = 1742-6) 18 0-55 [facility]erum or plasma protein measurement (mass/volume)2020-05-04 18:40:00* Test Item Value Reference Range Interpretation Comments Total Protein (test code = 2885-2) 7.4 6.5-8.1 [facility] (mass/volume)2020-05-04 18:40:00* Test Item Value Reference Range Interpretation Comments Albumin (test code = 1751-7) 3.8 3.5-5.0 [facility] (mass/volume) 2020-05-04 18:40:00* Test Item Value Reference Range Interpretation Comments Globulin (test code = 82130-4) 3.6 2.3-3.5 [facility] albumin/globulin mass aqzbo1500-14-02 18:40:00* Test Item Value Reference Range Interpretation Comments Albumin/Globulin Ratio (test code = 1759-0) 1.1 0.8-2.0 [facility] alkaline phosphatase measurement (enzymatic activity/volume)2020-05-04 18:40:00* Test Item Value Reference Range Interpretation Comments Alkaline Phosphatase (test code = 6768-6) 91 40-150 [facility] ethanol measurement (mass/volume)2020-05-04 18:40:00* Test Item Value Reference Range Interpretation Comments Ethyl Alcohol Level (test code = 5643-2) < 10.0 0.0-10.0 [facility] [id number] 18:40:00 [facility] [address] [address] Patient Name: GRIFFIN GIVENS MR #: [id number] : 1975 Age/Sex: 44/M Req #: [id number] Adm Physician: Ordered by: ALYSON MARIANO MD Report #: [id number] Location: ER Room/Bed: Procedure: [id number] CT/CT CERVICAL SP INE WO Exam Date: [...] 05/04/201841 COPY TO: ALYSON MARIANO MD CT MAXIO FAC/PARANAS [id number] 18:38:[address] [address] Patient Name: GRIFFIN GIVENS MR #: [id number] : 1975 Age/Sex: 44/M Req #: [id number] Adm Physician: Ordered by: ALYSON MARIANO MD Report #: [id number] Location: ER Room/Bed: Procedure: [id number] CT/CT MAXIO FAC/P ARAJUDIE WO Exam Date: 05/04/20 Exam Time: 1750 REPORT STATUS: Signed History:Trauma Comparison studies: None Technique: Axial images were obtained through t maxillofacial region. Coronal and sagittal images reconstructed [...] COPY TO: ALYSON MARIANO MD CT BRAIN [id number] 18:37:[address] [address] Patient Name: GRIFFIN GIVENS MR #: [id number] : 1975 Age/Sex: 44/M Req #: [id number] Adm Physician: Ordered by: ALYSON MARIANO MD Report #: [id number] Location: ER Room/Bed: Procedure: [id number] CT/CT BRAIN WO E xam Date: 05/04/20 Exam Time: 1750 REPORT [...] PM Dictated By: CHAPARRO JACKMAN MD, MD 37 Transcribed By: RODOLFO on 05/04/20 18 38 COPY TO: ALYSON MARIANO MD Urine color dlgsoxhzkvutl2841-22-25 18:15:00* Test Item Value Reference Range Interpretation Comments Urine Color (test code = 5778-6) YELLOW YELLOW [facility] yssolwp3455-15-12 18:15:00* Test Item Value Reference Range Interpretation Comments Urine Clarity (test code = 33111-7) CLEAR CLEAR [facility] Urine by Test strip 2020-05-04 18:15:00* Test Item Value Reference Range Interpretation Comments Urine Specific Nazlini (test code = 5811-5) 1.025 1.010-1.02 5 [facility] pH measurement by automated test diveh2438-76-75 18:15:00* Test Item Value Reference Range Interpretation Comments Urine pH (test code = 42734-8) 7 5-7 [facility] leukocyte esterase detection by pitdpeum1477-14-53 18:15:00* Test Item Value Reference Range Interpretation Comments Urine Leukocyte Esterase (test code = 5799-2) NEGATIVE NEGATIVE [facility] nitrite widvidlcu3514-17-87 18:15:00* Test Item Value Reference Range Interpretation Comments Urine Nitrite (test code = 31028-5) NEGATIVE NEGATIVE [facility] protein measurement by test strip (mass/volume)2020-05-04 18:15:00* Test Item Value Reference Range Interpretation Comments Urine Protein (test code = 5804-0) NEGATIVE NEGATIVE [facility] glucose clawqriol2660-98-16 18:15:00* Test Item Value Reference Range Interpretation Comments Urine Glucose (UA) (test code = 2349-9) NEGATIVE NEGATIVE [facility] ketones detection by automated test ivbtb4741-58-21 18:15:00* Test Item Value Reference Range Interpretation Comments Urine Ketones (test code = 35723-3) NEGATIVE NEGATIVE [facility] opiates screening qodr5963-53-73 18:15:00* Test Item Value Reference Range Interpretation Comments Urine Opiates Screen (test code = 28841-1) NEGATIVE NEGATIVE ALL TESTS PERFORMED MANUALLY ON [employer] TOX/SEE TESTUT Health HendersonBarbiturates screen, kcnzm1807-35-71 18:15:00* Test Item Value Reference Range Interpretation Comments Urine Barbiturates Screen (test code = 376514370) NEGATIVE NEGA TIVE [facility] phencyclidine detection by screening nkmooz9020-53-03 18:15:00* Test Item Value Reference Range Interpretation Comments Urine Phencyclidine Screen (test code = 91149-6) NEGATIVE NEGAT AUBREE [facility] amphetamines detection by screen method > 1000 ng/lE5811-09-56 18:15:00* Test Item Value Reference Range Interpretation Comments Urine Amphetamines Screen (test code = 12719-8) POSITIVE NEGATI VE This test provides only a screen. Positive results should be repeated by a confi rmatory test.[facility] HendersonFluoroscopic procedure less than one hour ltzydykr8869-80-37 18:15:00* Test Item Value Reference Range Interpretation Comments Urine Methamphetamines Screen (test code = Urine Metha mphetamines Screen) POSITIVE NEGATIVE This test provides only a screen. Positive results should be repeated by a confi rmatory test.[facility] benzodiazepines detection by screening lbxwda5723-32-79 18:15:00* Test Item Value Reference Range Interpretation Comments Urine Benzodiazepines Screen (test code = 47759-9) NEGATIVE NEG ATIVE [facility] cocaine measurement (mass/volume) 2020-05-04 18:15:00* Test Item Value Reference Range Interpretation Comments Urine Cocaine Screen (test code = 3398-5) NEGATIVE NEGATIVE [facility] cannabinoids detection by screening ewxtzd6007-78-66 18:15:00* Test Item Value Reference Range Interpretation Comments Urine Cannabinoids Screen (test code = 13196-4) NEGATIVE NEGATI VE THESE RESULTS ARE FOR MEDICAL TREATMENT ONLYTHIS REPORT CONTAINS UNCONFIR MED SCREENING RESULTS*POSITIVE RESULTS WILL BE CONFIRMED BY REFERENCE LAB UPON R EQUEST CUT-OFFDRUG CLASS CONCENTRATION ng/mLAmphetamines 1000Methamphetamines 1000Cocaine 300Opiate 300Phencyc lidine 25Cannabinoid 50Barbiturates 300Benzodiazepine 300Methadone 300[facility] methadone ffrkky1460-27-05 18:15:00* Test Item Value Reference Range Interpretation Comments Urine Methadone Screen (test code = 92171-4) NEGATIVE NEGATIVE This test provides only a screen. Positive results should be repeated by a confi rmatory test.THESE RESULTS ARE FOR MEDICAL TREATMENT ONLYTHIS REPORT CONT AINS UNCONFIRMED SCREENING RESULTS*POSITIVE RESULTS WILL BE CONFIRMED BY REFEREN CE LAB UPON REQUEST CUT-OFFDRUG CLASS CON CENTRATION ng/mLAmphetamines 1000Methamp hetamines 1000Cocaine Metabolite 300Opiate 300Phencyclidine 25Cannabinoid 50Barbiturates 300Benzodiazepine 300Methadone 30 0[facility]rine urobilinogen measurement by test strip (mass/volume)2020-05-04 18:15:00* Test Item Value Reference Range Interpretation Comments Urine Urobilinogen (test code = 13008-8) 0.2 0.2-1 [facility] total bilirubin measurement (mass/volume)2020-05-04 18:15:00* Test Item Value Reference Range Interpretation Comments Urine Bilirubin (test code = 1978-6) NEGATIVE NEGATIVE [facility] erythrocytes dmbhpbptq7520-92-21 18:15:00* Test Item Value Reference Range Interpretation Comments Urine Blood (test code = 02279-1) NEGATIVE NEGATIVE [facility] HendersonAutomated urine sediment leukocyte count by microscopy (number/high power field)2020-05-04 18:15:00* Test Item Value Reference Range Interpretation Comments Urine WBC (test code = 5821-4) 0-5 0-5 [facility] Henderson[facility]rythrocytes detection in urine sediment by light axcidgzrid7752-71-64 18:15:00* Test Item Value Reference Range Interpretation Comments Urine RBC (test code = 00841-3) 0-5 0-5 [facility] HendersonBacteria detection in urine sediment by light bcyqphxozz3590-66-97 18:15:00* Test Item Value Reference Range Interpretation Comments Urine Bacteria (test code = 94482-7) FEW NONE [facility] HendersonEpithelial cells detection in urine sediment by light iiqryutxkw8456-07-52 18:15:00* Test Item Value Reference Range Interpretation Comments Urine Epithelial Cells (test code = 22996-7) FEW NONE [facility] color jvrferkdchvqc5782-59-43 18:15:00* Test Item Value Reference Range Interpretation Comments Urine Color (test code = 5778-6) YELLOW YELLOW [facility] tshdofl9583-96-65 18:15:00* Test Item Value Reference Range Interpretation Comments Urine Clarity (test code = 46907-6) CLEAR CLEAR [facility] Urine by Test strip 2020-05-04 18:15:00* Test Item Value Reference Range Interpretation Comments Urine Specific Nazlini (test code = 5811-5) 1.025 1.010-1.02 5 [facility] pH measurement by automated test lfkfk6960-78-07 18:15:00* Test Item Value Reference Range Interpretation Comments Urine pH (test code = 18743-3) 7 5-7 [facility] leukocyte esterase detection by eprufagl9470-47-66 18:15:00* Test Item Value Reference Range Interpretation Comments Urine Leukocyte Esterase (test code = 5799-2) NEGATIVE NEGATIVE [facility] nitrite txwkvyrlz6260-46-05 18:15:00* Test Item Value Reference Range Interpretation Comments Urine Nitrite (test code = 25546-9) NEGATIVE NEGATIVE [facility] protein measurement by test strip (mass/volume)2020-05-04 18:15:00* Test Item Value Reference Range Interpretation Comments Urine Protein (test code = 5804-0) NEGATIVE NEGATIVE [facility] glucose ljeffzhvd4061-87-20 18:15:00* Test Item Value Reference Range Interpretation Comments Urine Glucose (UA) (test code = 2349-9) NEGATIVE NEGATIVE [facility] ketones detection by automated test gtvyj0983-55-80 18:15:00* Test Item Value Reference Range Interpretation Comments Urine Ketones (test code = 06634-4) NEGATIVE NEGATIVE [facility] opiates screening ovxn9399-16-69 18:15:00* Test Item Value Reference Range Interpretation Comments Urine Opiates Screen (test code = 23005-7) NEGATIVE NEGATIVE ALL TESTS PERFORMED MANUALLY ON [employer] TOX/SEE TESTUT Health HendersonBarbiturates screen, acxlc2423-82-96 18:15:00* Test Item Value Reference Range Interpretation Comments Urine Barbiturates Screen (test code = 661566575) NEGATIVE NEGA TIVE [facility] Henderson[facility] phencyclidine detection by screening amhhex2343-91-61 18:15:00* Test Item Value Reference Range Interpretation Comments Urine Phencyclidine Screen (test code = 62630-1) NEGATIVE NEGAT AUBREE [facility] amphetamines detection by screen method > 1000 ng/rF8940-80-70 18:15:00* Test Item Value Reference Range Interpretation Comments Urine Amphetamines Screen (test code = 49919-9) POSITIVE NEGATI VE This test provides only a screen. Positive results should be repeated by a confi rmatory test.[facility] HendersonFluoroscopic procedure less than one hour vsharznq4672-41-67 18:15:00* Test Item Value Reference Range Interpretation Comments Urine Methamphetamines Screen (test code = Urine Metha mphetamines Screen) POSITIVE NEGATIVE This test provides only a screen. Positive results should be repeated by a confi rmatory test.[facility] Henderson[facility] benzodiazepines detection by screening ktzifd7636-09-21 18:15:00* Test Item Value Reference Range Interpretation Comments Urine Benzodiazepines Screen (test code = 24204-7) NEGATIVE NEG ATIVE [facility] cocaine measurement (mass/volume) 2020-05-04 18:15:00* Test Item Value Reference Range Interpretation Comments Urine Cocaine Screen (test code = 3398-5) NEGATIVE NEGATIVE [facility] cannabinoids detection by screening exdvuw6133-70-62 18:15:00* Test Item Value Reference Range Interpretation Comments Urine Cannabinoids Screen (test code = 38772-3) NEGATIVE NEGATI VE THESE RESULTS ARE FOR MEDICAL TREATMENT ONLYTHIS REPORT CONTAINS UNCONFIR MED SCREENING RESULTS*POSITIVE RESULTS WILL BE CONFIRMED BY REFERENCE LAB UPON R EQUEST CUT-OFFDRUG CLASS CONCENTRATION ng/mLAmphetamines 1000Methamphetamines 1000Cocaine 300Opiate 300Phencyc lidine 25Cannabinoid 50Barbiturates 300Benzodiazepine 300Methadone 300[facility] methadone ctkdzk6264-47-98 18:15:00* Test Item Value Reference Range Interpretation Comments Urine Methadone Screen (test code = 07667-4) NEGATIVE NEGATIVE This test provides only a screen. Positive results should be repeated by a confi rmatory test.THESE RESULTS ARE FOR MEDICAL TREATMENT ONLYTHIS REPORT CONT AINS UNCONFIRMED SCREENING RESULTS*POSITIVE RESULTS WILL BE CONFIRMED BY REFEREN CE LAB UPON REQUEST CUT-OFFDRUG CLASS CON CENTRATION ng/mLAmphetamines 1000Methamp hetamines 1000Cocaine Metabolite 300Opiate 300Phencyclidine 25Cannabinoid 50Barbiturates 300Benzodiazepine 300Methadone 30 0[facility] urobilinogen measurement by test strip (mass/volume)2020-05-04 18:15:00* Test Item Value Reference Range Interpretation Comments Urine Urobilinogen (test code = 52700-9) 0.2 0.2-1 [facility] total bilirubin measurement (mass/volume)2020-05-04 18:15:00* Test Item Value Reference Range Interpretation Comments Urine Bilirubin (test code = 1978-6) NEGATIVE NEGATIVE [facility] erythrocytes qjwlqodnv0393-90-68 18:15:00* Test Item Value Reference Range Interpretation Comments Urine Blood (test code = 48901-9) NEGATIVE NEGATIVE [facility] HendersonAutom[facility] urine sediment leukocyte count by microscopy (number/high power field)2020-05-04 18:15:00* Test Item Value Reference Range Interpretation Comments Urine WBC (test code = 5821-4) 0-5 0-5 [facility] HendersonErythrocytes detection in urine sediment by light lyaajmascu4607-46-15 18:15:00* Test Item Value Reference Range Interpretation Comments Urine RBC (test code = 00756-6) 0-5 0-5 [facility] HendersonBacteria detection in urine sediment by light bmfmepqfwi6151-45-78 18:15:00* Test Item Value Reference Range Interpretation Comments Urine Bacteria (test code = 44959-2) FEW NONE [facility] HendersonEpithelial cells detection in urine sediment by light vggtovqmaj0709-08-82 18:15:00* Test Item Value Reference Range Interpretation Comments Urine Epithelial Cells (test code = 34400-6) FEW NONE [facility] Henderson[facility]ST SINGLE (NOT PORTABLE)2020-05-04 18:05:00 [facility] [address] [address] Patient Name: GRIFFIN GIVENS MR #: [id number] : 1975 Age/Sex: 44/M Req #: [id number] Adm Physician: Ordered by: ALYSON MARIANO MD Report #: [id number] Location: ER Room/Bed: Procedure: [id number] DX/CHEST SINGLE ( NOT PORTABLE) Exam Date: [...]
== END | disposition left against medical advice (07) ==
LOC: ER 15:15
DX: J02.9 Acute pharyngitis, unspecified (principal)

== ENCOUNTER 2022-07-13 11:20 | Emergency (ER) | payer SELFPAY ==
[~2022-07-13] VITALS: Ht 180.3 cm; Wt 86.2 kg
[2022-07-13] MEDS ORDERED: IBUPROFEN600 MG PO (12:16)
== END 2022-07-13 12:21 | disposition home or self-care (01) ==
LOC: ER 12:14
DX: M25.422 Effusion, left elbow (principal); M70.22 Olecranon bursitis, left elbow; F17.210 Nicotine dependence, cigarettes, uncomplicated
CPT/HCPCS: 99283

== ENCOUNTER 2025-05-30 13:50 | Emergency (ER) | payer SELFPAY ==
[~2025-05-30] VITALS: Ht 175.3 cm; Wt 82.8 kg
[~2025-05-30 13:50] MED LIST: IBUPROFEN600 MG PO
[2025-05-30 14:00] VITALS: PULSE 96; RESP 20; TEMP 97.9; O2SAT 99
[2025-05-30] MEDS ORDERED: VENTOLIN HFA18 GM INH (14:21)
[2025-05-30] MEDS ORDERED: CORICIDIN HBP1 EAC4 PO (14:21)
== END 2025-05-30 14:35 | disposition home or self-care (01) ==
LOC: FSED 13:55
DX: R05.9 Cough, unspecified (principal); J06.9 Acute upper respiratory infection, unspecified; Z11.52 Encounter for screening for COVID-19
CPT/HCPCS: 0223U; 87400; 99284